=== PATIENT | female | born 1980 | race Caucasian/White ===

== ENCOUNTER 2022-03-04 16:47 | Emergency (ER) | payer MEDICAID, SELFPAY ==
[2022-03-04 17:29] VITALS: BP 175/133; PULSE 95; RESP 16; TEMP 36.8; O2SAT 99; BMI 29.2
--- NOTE | 2022-03-04 18:21 | ED_ITS ---
HPI - General Adult General: Chief complaint: Abdominal Pain Stated complaint: Abd pains, N/V Time Seen by Provider: 03/04/22 18:14 History of Present Illness: Patient is a 41-year-old female with a history of smoking no prior abdominal surgeries presenting to the emergency room with complaints of an periumbilical and LLQ abdominal pain since yesterday night. Patient tells me that she ate something around 7:00 since and has been having moderate pain intermittent colicky. Patient has any history of renal colic. No urinary complaints or history of kidney stones.. Patient denies any new vaginal discharge. Patient has any fever/chills, cough, runny nose sore throat, chest pain, shortness of breath or palpitation Onset: yesterday night Duration:ongoing Location:home Severity:moderate Associated symptoms: Deny chest pain, dyspnea, nausea, rash, palpitations or vomiting Review of Systems Const: Denies: fever(s) or chills Eyes: Denies: change in vision ENMT: Denies: mouth pain Card: Denies: chest pain or palpitations Resp: Denies: dyspnea or non-productive cough GI: Reports: abdominal pain (+LLQ abd pain); Denies: nausea, vomiting or diarrhea : Denies: dysuria Musc: Denies: extremity pain Skin/Breast: Denies: rash or new lesions Neuro: Denies: weakness in extremities Psych: Reports: other (Normal mood) Stanley/Lymph: Denies: easy bruising PFSH ED PFSH: Medical History No pertinent past medical history Social History Smoking and tobacco status: current every day smoker Alcohol intake: never Substance/Drug Use: never Physical Exam Const: COMMON NORMALS: alert HENMT: COMMON NORMALS: atraumatic HEAD & SCALP: atraumatic MOUTH: moist mucous membranes not abnormal Eye: COMMON NORMALS: EOMs intact bilaterally and conjunctivae normal CONJUNCTIVA: Yes conjunctivae normal Neck/C-Spine: COMMON NORMALS: full ROM and supple Resp: COMMON NORMALS: normal respiratory effort and clear to auscultation bilaterally AUSCULTATION: clear to auscultation bilaterally Cardio: COMMON NORMALS: regular rate RATE: regular rate GI: COMMON NORMALS: Soft to palpation PALPATION: Yes Soft to palpation OTHER: + Periumbilical focal and LLQ TTP. NO guarding rebound, guarding, rigidity. No CVA tenderness to percussion. Neg Tapia/Neg McBurney's point tenderness, no suprabupic tenderness to palpation. Back/Pelvis: OTHER: PELVIC: Exam supervised RENEE Hickey, mild white discharge in the vaginal vault, no friable cervix, no CMT, no adnexal tenderness Extremity: COMMON NORMALS: full ROM Neuro: SENSORIUM/ORIENTATION: Yes alert MOTOR EXAM: No Abnormal motor strength present and Other motor observations present (no focal motor deficits) Psych: COMMON NORMALS: speech normal SPEECH: Yes normal speech MOOD & AFFECT: Yes euthymic mood Course Vital Signs: Vital signs: Vital Signs Temperature 98.2 F 03/04/22 17:29 Pulse Rate 89 03/04/22 19:56 Respiratory Rate 18 03/04/22 19:56 Blood Pressure 171/117 03/04/22 19:56 Pulse Oximetry 99 03/04/22 19:56 Oxygen Delivery Me thod 03/04/22 19:56 MDM - General Adult Medical Decision Making Patient is a 41-year-old female with history of smoking presenting to the emergency room with complaints of periumbilical and LLQ abd pain yesterday night. On exam, patient is afebrile, with mild tenderness palpation in the periumbilical and LLQ. Patient is afebrile. No acute distress. On pelvic exam, patient was noted to have mild discharge in the vaginal vault without any friable cervix. No adnexal tenderness. Patient has white blood count of 18.7K. Hemoglobin of 15.6. Sodium 129. Rest of lab within normal limit. CT on pelvis showed mild mild hydronephrosis bilaterally. Patient is noted to have 4+ bacteria in the urine. Rest of UA negative for any acute findings. Transvaginal US showed no focal pathologies. I discussed care with Dr. Fall who recommended starting patient on antibiotics for coverage of bilateral hydro with bacteria in the urine. Patient received cefdinir in ER. Reassessment, patient reports pain is improved. Patient has not had any nausea or vomiting while observed in the emergency room. Do not suspect that this is infected stone but will cover her for UTI in the setting of hydronephrosis. No suspicion for other acute intra-abdominal pathology including SBO, biliary pathology, appendicitis, diverticulitis, or other emergent condition requiring surgery. Patient has vaginal swabs all unremarkable. I have given patient follow up with our vocational case manager to be seen by our outpatie nt by Dr. Fall for b/l hydronephrosis. Patient aware of a call from our vocational case manager to schedule for appointment(s) and verbalizes understanding of the importance of following up. Rx cefdinir for UTI Disposition: Discharge. Patient counseled regarding diagnostic impression, treatment plan. Patient given ED strict return precautions to return for continuation, worsening, or development of new symptoms. Instructed to f/u w/ Dr. Fall and PCP regarding symptoms today. Patient verbalized understanding. Lab Data : 03/04/22 18:32 03/04/22 18:32 Radiology Impressions Abdomen/Pelvis CT 03/04/22 19:17 IMPRESSION: 1. Mild right and trace left hydronephrosis. No visible calculus. 2. No other abnormality identified. Transvaginal US 03/04/22 20:56 IMPRESSION: No acute findings. Laboratory Results WBC 18.7 10^3/uL (4.0-10.0) H 03/04/22 18:32 RBC 5.12 10^6/uL (4.1-5.3) 03/04/22 18: Hgb 15.6 g/dL (11.5-15.3) H 03/04/22 18:32 Hct 48.6 % (37.0-47.0) H 03/04/22 18:32 MCV 94.9 fl (81-99) 03/04/22 18: MCH 30.5 pg (28.0-34.0) 03/04/22 18:32 MCHC 32.1 g/dL (30.0-36.0) 03/04/22 18: RDW 13.4 % (12.1-15.1) 03/04/22 18: Plt Count 353 10^3/cmm (130-400) 03/04/22 18:32 MPV 10.4 fL (7.4-10.4) 03/04/22 18:32 Neut % (Auto) 84.2 % 03/04/22 18: Lymph % (Auto) 10.9 % 03/04/22 18:32 Nobles % (Auto) 4.2 % 03/04/22 18:32 Eos % (Auto) 0.1 % 03/04/22 18:32 Baso % (Auto) 0.2 % 03/04/22 18:32 Neut # (Auto) 15.77 10^3/uL (1.8-7.7) H 03/04/22 18:32 Lymph # (Auto) 2.0 10^3/uL (0.8-4.8) 03/04/22 18:32 Nobles # (Auto) 0.8 10^3/uL (0.2-0.9) 03/04/22 18:32 Eos # (Auto) 0.0 10^3/uL (0.0-0.8) 03/04/22 18: Baso # (Auto) 0.0 10^3/uL (0.0-0.1) 03/04/22 18:32 Nucleated RBC % (auto) 0 % 03/04/22 18:32 Nucleated RBCs # 0.0 /100WBC 03/04/22 18:32 Sodium 129 mmol/L (136-145) L 03/04/22 18:32 Potassium 4.1 mmol/L (3.5-5.1) 03/04/22 18:32 Chloride 93 mmol/L (98-107) L 03/04/22 18:32 Carbon Dioxide 22 mmol/L (22-29) 03/04/22 18:32 Anion Gap 18.1 (5-19) 03/04/22 18:32 BUN 7 mg/dL (6-20) 03/04/22 18:32 Creatinine 0.4 mg/dL (0.5-0.9) L 03/04/22 18:32 GFR Calculation 175.0 mL/min (90-130) H 03/04/22 18:32 Glucose 91 mg/dL (65-115) 03/04/22 18:32 Calculated Osmolality 266 mOsm/kg (285-295) L 03/04/22 18:32 Calcium 9.4 mg/dL (8.5-10.5) 03/04/22 18:32 Total Bilirubin 0.5 mg/dL (0.15-1.2) 03/04/22 18:32 AST 20 U/L (0-32) 03/04/22 18:32 ALT 18 U/L (0-33) 03/04/22 18:32 Alkaline Phosphatase 151 IU/L (35-105) H 03/04/22 18:32 Total Protein 8.3 g/dL (6.6-8.7) 03/04/22 18:32 Albumin 4.4 g/dL (3.5-5.2) 03/04/22 18:32 Globulin 3.9 g/dL (1.3-4.6) 03/04/22 18:32 Lipase 12 U/L (13-60) L 03/04/22 18:32 Urine Color Yellow (Yellow) 03/04/22 18:32 Urine Appearance Sl hazy (CLEAR) 03/04/22 18:32 Urine pH 7 (5-7) 03/04/22 18:32 Ur Specific [place] 1.010 (1.005-1.030) 03/04/22 18:32 Urine Protein 1+ (Negative) H 03/04/22 18:32 Urine Glucose (UA) Norm (Normal) 03/04/22 18:32 Urine Ketones Negative (Negative) 03/04/22 18:32 Urine Blood Neg (Negative) 03/04/22 18:32 Urine Nitrate Negative (Negative) 03/04/22 18:32 Urine Bilirubin Neg (Negative) 03/04/22 18:32 Urine Urobilinogen Norm mg/dL (Negative) 03/04/22 18:32 Ur Leukocyte Esterase Negative (Negative) 03/04/22 18:32 Urine RBC 0-4 /hpf (0-2) H 03/04/22 18:32 Urine WBC 0-4 /hpf (0-5) H 03/04/22 18:32 Ur Squamous Epith Cells 0-4 /hpf (0-5) H 03/04/22 18:32 Amorphous Sediment Not Reportable 03/04/22 18:32 Urine Bacteria 4+ /hpf (NONE) H 03/04/22 18:32 Urine HCG, Qual Negative (Negative) 03/04/22 18:32 Imaging Data Other Imaging: Radiologist's impression: [facility] [address] [place] [address] Ultrasound Report Signed Patient: Robyn Asencio Unit #: [id number] : 1980 Age/Sex: 41 / F ADM Date: 03/04/22 Loc: ER Room/Bed: Attending Dr: Ordering Provider/Ordering MD: Jonathan Maza MD Date of Service: 03/04/22 Procedure(s): US transvaginal [id number] Accession Number(s): [id number] Report Number: [id number] PROCEDURE INFORMATION: Exam: US Pelvis, Transvaginal Exam date and time: 03/04/2022 9:20 PM Age: 41 years old Clinical indication: Pelvic pain; Patient HX: Llq pain x 2 days; Additional info: Llq abd pain TECHNIQUE: Imaging protocol: Real-time transvaginal pelvic ultrasound with image documentation. Transvaginal imaging was used for better evaluation of the endometrium, adnexa, and/or cervix. COMPARISON: CT abdomen pelvis w con* [id number] 03/04/2022 8:10 PM FINDINGS: Uterus: 8.1 x 4.1 x 4.9 cm. Endometrial thickness 9 mm.? The cervix is unremarkable. Right ovary/adnexa: 2.7 x 1.8 x 2.7 cm with small follicles and normal blood flow. Left ovary/adnexa: 3.0 x 2.3 x 3.0 cm with multiple small follicles and normal blood flow. Intraperitoneal space: No free fluid. US/US transvaginal [id number] IMPRESSION: No acute findings. ? Dictated By: Cayetano Cordova Signed By: Cayetano Cordova Signed Date/Time: 03/04/222147 DD/ [address] [address] [address] Scan Report Signed Patient: Robyn Asencio Unit #: [id number] : 1980 Age/Sex: 41 / F ADM Date: 03/04/22 Loc: ER Room/Bed: Attending Dr: Ordering Provider/Ordering MD: Jonathan Maza MD Date of Service: 03/04/22 Procedure(s): CT abdomen pelvis w con* [id number] Accession Number(s): [id number] Report Number: [id number] PROCEDURE INFORMATION: Exam: CT Abdomen And Pelvis With Contrast Exam date and time: 03/04/2022 8:10 PM Age: 41 years old Clinical indication: Abdominal pain; Additional info: Abd pain TECHNIQUE: Imaging protocol: Computed tomography of the abdomen and pelvis with contrast. Radiation optimization: All CT scans at this facility use at least one of these dose optimization techniques: automated exposure control; mA and/or kV adjustment per patient size (includes targeted exams where dose is matched to clinical indication); or iterative reconstruction. Contrast material: OMNIPAQUE 350; Contrast volume: 90 ml; Contrast route: INTRAVENOUS (IV);? COMPARISON: No relevant prior studies available. RADIATION DOSE METRICS: Total DLP (mGy-cm): 504.83 FINDINGS: Liver: Normal. No mass. Gallbladder and bile ducts: Normal. No calcified stones. No ductal dilation. Pancreas: Normal. No ductal dilation. Spleen: Normal. No splenomegaly. Adrenal glands: Normal. No mass. Kidneys and ureters:? No visible calculus. Mild right and trace left hydronephrosis. Stomach and bowel: Unremarkable. No obstruction. No mucosal thickening. Appendix: The appendix is visualized and is normal. Intraperitoneal space: Unremarkable. No free air. No significant fluid collection. 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 Mild arterial calcifications. No aneurysm. Lymph nodes: Unremarkable. No enlarged lymph nodes. Urinary bladder: Unremarkable as visualized. Reproductive: Tubal ligation clips. The uterus and ovaries are unremarkable. Bones/joints: Unremarkable. No acute fracture. Soft tissues: Unremarkable. CT/CT abdomen pelvis w con* [id number] IMPRESSION: 1. Mild right and trace left hydronephrosis.? No visible calculus.? 2. No other abnormality identified.? ? Dictated By: Cayetano Cordova Signed By: Cayetano Cordova Signed Date/Time: 03/04/222053 DD/ 09 Discharge Plan Discharge Patient Disposition: Home Clinical Impression: Abdominal pain, UTI (urinary tract infection) Prescriptions: New acetaminophen 500 mg tablet 500 mg PO Q6H PRN (Reason: pain) 5 Days Qty: 20 0RF Pepcid 20 mg tablet 20 mg PO BID PRN (Reason: abdominal pain) 10 Days Qty: 20 0RF Maalox Advanced 1,000-60 mg tablet,chewable 1 tab PO TID PRN (Reason: abdominal pain) 7 Days Qty: 21 0RF cefdinir 300 mg capsule 300 mg PO BID 7 Days Qty: 14 0RF Discharge Orders: Discharge ED (Routine); Ordered 03/04/22 Ordered By: Jonathan Maza Referrals: Zion Spann MD [Family Provider] - Discharge Diet: Advance as tolerated Discharge Activity: Increase activity as tolerated Patient Instructions: Dysuria (ED), Abdominal Pain (ED) Activity Restrictions/Additional Instructions: Please take your antibiotics as instructed. Watch out for signs of skin changes/redness, mouth redeness or swelling, nausea/vomiting, diarrhea, blood in the urine or any new or concering complaints. Please come back if you have any worsening abdominal pain, fever or chills, nausea or vomiting, diarrhea, blood in the stool, inability hold down liquid or solids, or any new concerning complaints. Our vocational case manager will have you follow-up with Dr. Fall in the next few days for enlarged kidneys. You would be expected to have a phone call with our vocational case manager who will put you on the schedule. You can expect a call from us in the next 2-3 days. If you don't hear from us, call us back in the emergency room at [phone]. Coding Level of Care Code ED Financial Planning Assistant for Chg Fwd Exam Comprehensive
[2022-03-04 18:44] LABS: Basophils % 0.2 %; Eosinophils % 0.1 %; Hematocrit 48.6 % (37.0-47.0); Hemoglobin 15.6 g/dL (11.5-15.3); Lymphocytes % 10.9 %; Mean Corpuscular HGB Conc 32.1 g/dL (30.0-36.0); Mean Corpuscular Hemoglobin 30.5 pg (28.0-34.0); Mean Corpuscular Volume 94.9 fl (81-99); Mean Platelet Volume 10.4 fL (7.4-10.4); Monocytes # 0.8 10^3/uL (0.2-0.9); Monocytes % 4.2 %; Neutrophils # 15.77 10^3/uL (1.8-7.7); Neutrophils % 84.2 %; Nucleated Red Blood Cells % 0 %; Platelet Count 353 10^3/cmm (130-400); Red Blood Count 5.12 10^6/uL (4.1-5.3); Red Cell Distribution Width 13.4 % (12.1-15.1); White Blood Count 18.7 10^3/uL (4.0-10.0)
--- NOTE | 2022-03-04 19:17 | CTR_ITS ---
PROCEDURE INFORMATION: Exam: CT Abdomen And Pelvis With Contrast Exam date and time: 03/04/2022 8:10 PM Age: 41 years old Clinical indication: Abdominal pain; Additional info: Abd pain TECHNIQUE: Imaging protocol: Computed tomography of the abdomen and pelvis with contrast. Radiation optimization: All CT scans at this facility use at least one of these dose optimization techniques: automated exposure control; mA and/or kV adjustment per patient size (includes targeted exams where dose is matched to clinical indication); or iterative reconstruction. Contrast material: OMNIPAQUE 350; Contrast volume: 90 ml; Contrast route: INTRAVENOUS (IV); COMPARISON: No relevant prior studies available. RADIATION DOSE METRICS: Total DLP (mGy-cm): 504.83 FINDINGS: Liver: Normal. No mass. Gallbladder and bile ducts: Normal. No calcified stones. No ductal dilation. Pancreas: Normal. No ductal dilation. Spleen: Normal. No splenomegaly. Adrenal glands: Normal. No mass. Kidneys and ureters: No visible calculus. Mild right and trace left hydronephrosis. Stomach and bowel: Unremarkable. No obstruction. No mucosal thickening. Appendix: The appendix is visualized and is normal. Intraperitoneal space: Unremarkable. No free air. No significant fluid collection. 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 Mild arterial calcifications. No aneurysm. Lymph nodes: Unremarkable. No enlarged lymph nodes. Urinary bladder: Unremarkable as visualized. Reproductive: Tubal ligation clips. The uterus and ovaries are unremarkable. Bones/joints: Unremarkable. No acute fracture. Soft tissues: Unremarkable. CT/CT abdomen pelvis w con* [id number] IMPRESSION: 1. Mild right and trace left hydronephrosis. No visible calculus. 2. No other abnormality identified.
[2022-03-04 19:24] LABS: Alanine Aminotransferase 18 U/L (0-33); Albumin Level 4.4 g/dL (3.5-5.2); Alkaline Phosphatase 151 IU/L (35-105); Blood Urea Nitrogen 7 mg/dL (6-20); Calcium 9.4 mg/dL (8.5-10.5); Carbon Dioxide 22 mmol/L (22-29); Chloride 93 mmol/L (98-107); Globulin 3.9 g/dL (1.3-4.6); Glucose 91 mg/dL (65-115); Lipase 12 U/L (13-60); Osmolality Calculated 266 mOsm/kg (285-295); Sodium 129 mmol/L (136-145); Total Bilirubin 0.5 mg/dL (0.15-1.2); Total Protein 8.3 g/dL (6.6-8.7)
[2022-03-04 19:26] LABS: Anion Gap 18.1 (5-19); Aspartate Amino Transferase 20 U/L (0-32); Potassium 4.1 mmol/L (3.5-5.1)
[2022-03-04] MEDS: famotidine 20 mg/2 mL INJ IVP (19:41)
[2022-03-04] MEDS: sodium chloride 0.9% 1,000 ML 999 ML IV (19:43)
[2022-03-04 19:56] VITALS: BP 171/117; PULSE 89; RESP 18; O2SAT 99
[2022-03-04] MEDS: iohexol 350 mg/mL 100 mL Btl IV (20:21)
[2022-03-04 20:48] LABS: Add Urine Microscopic? YES; Bilirubin Urine Neg (Negative); Blood Urine Neg (Negative); Glucose Urine UA Norm (Normal); Ketones Urine Negative (Negative); Leukocyte Esterase Urine Negative (Negative); Nitrate Urine Negative (Negative); Protein Urine 1+ (Negative); RBC Urine 0-4 /hpf (0-2); Urine Appearance SL Hazy (CLEAR); Urine Color Yellow (Yellow); Urobilinogen Urine Norm (Negative); WBC Urine 0-4 /hpf (0-5); pH Urine 7 (5-7)
[2022-03-04 20:49] LABS: Add Urine Culture? Yes; Bacteria Urine 4+ /hpf; Squamous Epithelial Cell Urine 0-4 /hpf (0-5)
--- NOTE | 2022-03-04 20:56 | USR_ITS ---
PROCEDURE INFORMATION: Exam: US Pelvis, Transvaginal Exam date and time: 03/04/2022 9:20 PM Age: 41 years old Clinical indication: Pelvic pain; Patient HX: Llq pain x 2 days; Additional info: Llq abd pain TECHNIQUE: Imaging protocol: Real-time transvaginal pelvic ultrasound with image documentation. Transvaginal imaging was used for better evaluation of the endometrium, adnexa, and/or cervix. COMPARISON: CT abdomen pelvis w con* [id number] 03/04/2022 8:10 PM FINDINGS: Uterus: 8.1 x 4.1 x 4.9 cm. Endometrial thickness 9 mm. The cervix is unremarkable. Right ovary/adnexa: 2.7 x 1.8 x 2.7 cm with small follicles and normal blood flow. Left ovary/adnexa: 3.0 x 2.3 x 3.0 cm with multiple small follicles and normal blood flow. Intraperitoneal space: No free fluid. US/US transvaginal [id number] IMPRESSION: No acute findings.
[2022-03-04] MEDS: cefdinir 300 MG CAPSULE PO (22:28)
[2022-03-04 22:54] VITALS: BP 163/109; PULSE 106; RESP 18; O2SAT 99
--- NOTE | 2022-03-06 15:55 | DCPLANNER ---
Addendum entered by Dayana Nolasco 04/12/22 11:50: Patient had a follow up appointment scheduled with urology - patient did attend appointment. Addendum entered by Dayana Nolasco 03/08/22 12:40: Patient has a follow up appointment scheduled for Friday, April 03, 2022 at 8:00 with Kathryn Monroy at urology. Clinic will call patient with appointment information. Original Note: digital communications manager had message to schedule a follow up appointment for patient with urology. digital communications manager sent patients information to the front office staff at urology. Patients information will be printed and reviewed. Clinic will call patient with appointment information.
== END 2022-03-04 22:46 | disposition home or self-care (01) ==
PROVIDERS: Emergency Provider Emergency Medicine; Family Provider Family Medicine
DX: N39.0 Urinary tract infection, site not specified (principal); R10.9 Unspecified abdominal pain; F17.210 Nicotine dependence, cigarettes, uncomplicated
CPT/HCPCS: 74177; 76830; 80053; 81001; 81025; 83690; 85025; 87077; 87081; 87086; 87186; 87205; 87210; 96374; 99285; J3490; J7030; Q9967

== ENCOUNTER 2022-04-03 07:59 | Outpatient (CLI) | payer MEDICAID, SELFPAY ==
--- NOTE | 2022-04-03 08:05 | XR_ITS ---
WS: [id number] KUB, AP view, 04/03/2022 Clinical Data: Hydronephrosis Comparison: None. Findings: No abnormal intraabdominal masses or calcifications are seen. There is no dilatated small bowel or ev idence of obstruction. There is a large amount of fecal material throughout the colon. There is a gentle dextroscoliosis wit h minimal osteoarthritis of the lumbar vertebral bodies. XR/XR KUB [id number] Impression: Large amount of fecal material throughout the colon.
== END 2022-04-03 08:00 | disposition home or self-care (01) ==
LOC: RAD 08:01
PROVIDERS: Visit Provider Nurse Practitioner Family
DX: N13.30 Unspecified hydronephrosis (principal)
CPT/HCPCS: 51798; 74018

== ENCOUNTER → 2022-04-16 11:52 | Outpatient (BNVA) | payer SELFPAY | PROVIDERS: Visit Provider Nurse Practitioner Family | DX: N13.30 Unspecified hydronephrosis (principal); R10.9 Unspecified abdominal pain | CPT/HCPCS: 81003 ==

== ENCOUNTER → 2022-06-04 15:23 | Outpatient (BNVA) | payer MEDICAID, SELFPAY | PROVIDERS: Visit Provider Surgery | DX: K59.00 Constipation, unspecified (principal); R10.9 Unspecified abdominal pain | CPT/HCPCS: 99203 ==

== ENCOUNTER 2022-06-13 11:21 | Outpatient (CLI) | payer MEDICAID, SELFPAY ==
--- NOTE | 2022-06-13 11:00 | US_ITS ---
WS: [id number] RENAL ULTRASOUND HISTORY: Hydronephrosis COMPARISON: CT abdomen 03/04/2022. TECHNIQUE: 2-D and color Doppler imaging of the kidney submitted. Right kidney: 11.0 cm x 5.5 cm x 5.0 cm. Normal echogenicity with no hydronephrosis or mass. Left kidney: 11.1 cm x 6.1 cm x 4.0 cm. Normal echogenicity with no hydronephrosis or mass. Aorta: Normal. Urinary Bladder: Normal distention. Incidental note is made of a hemorrhagic RIGHT ovarian cyst. No increased vascularity. Cyst measures 4.7 x 4.4 x 4.7 cm. US/US renal BI* [id number] IMPRESSION: Normal renal ultrasound.
== END 2022-06-13 11:22 | disposition home or self-care (01) ==
PROVIDERS: Visit Provider Urology
DX: N13.30 Unspecified hydronephrosis (principal)
CPT/HCPCS: 76770

== ENCOUNTER → 2022-06-14 09:37 | Outpatient (BNVA) | payer MEDICAID, SELFPAY | PROVIDERS: Visit Provider Urology | DX: N13.30 Unspecified hydronephrosis (principal) | CPT/HCPCS: 81003; 87077; 87086; 87186 ==

== ENCOUNTER → 2022-10-29 13:10 | Outpatient (BNVA) | payer MEDICAID, SELFPAY | PROVIDERS: Visit Provider Obstetrics & Gynecology | DX: Z01.818 Encounter for other preprocedural examination (principal) | CPT/HCPCS: 81025; 88305; 88342 ==

== ENCOUNTER → 2022-12-12 12:41 | Outpatient (BNVA) | payer MEDICAID, SELFPAY | PROVIDERS: Visit Provider Obstetrics & Gynecology | DX: R10.2 Pelvic and perineal pain (principal) | CPT/HCPCS: 76830 ==

== ENCOUNTER 2023-01-15 18:01 | Observation (INO) | payer MEDICAID, SELFPAY ==
--- NOTE | 2023-01-13 08:37 | P.ANESASSM_ITS ---
Pre-Anesthetic Assessment Height/Weight: Height 1.52 m Weight 63.503 kg Operation Date: 01/15/23 10:30 Proposed Procedures p Total Vaginal Hysterectomy(Not Applicable) - Reji Dukes MD s [Total vaginal hysterectomy, bilateral salpingo-oophrectomy 84338], R10.2(Bilateral) - Reji Dukes MD Familial anesthetic complications: none Was Beta Taqueria taken within 24 hours: N/A Was Clonidine taken within 24 hours: N/A Social Tobacco and No alcohol Exam alert, oriented x 3 and regular rate & rhythm Airway Submandibular: within normal limits Cervical ROM: within normal limits Mallampati: Class II Dentition: chipped Comments: Comments: Very poor dentition, multiple missing and caries Pulmonary Chronic Obstructive Pulmonary Disease Anesthetic Plan ASA status: 3 Anesthesia: General Medications/Allergies Home Medications Medication Instructions Recorded Confirmed Last Taken Type No Known Home Medications 10/29/22 01/13/23 Unknown History Allergies Allergy/AdvReac Type Severity Reaction Status Date / Time No Known Allergies Allergy Verified 01/13/23 08:08 [facility] Anesthesia Medical History Hydronephrosis Possible right mild hydronephrosis on CT scan in 2021. CT scan was done for LEFT abdominal pain of unclear etiology Follow-up for hydronephrosis with ultrasound confirmed NO HYDRONEPHROSIS. No further work-up recommended. No pertinent past medical history Surgical History Hx of tubal ligation Family History Mother Healthy adult Father Healthy adult Social History Smoking and tobacco status: current every day smoker Alcohol intake: current Alcohol intake frequency: 0-2 Drinks per Day Substance/Drug Use: never Adopted: No Lives independently: Yes Marital status: Single Current occupational status: employed Female Reproductive History Date of last menstrual period: 12/12/22 Data Anesthesia Cardiac Studies: No Data to Display
[2023-01-15] VITALS (18 sets, daily range): BP systolic 117–143; BP diastolic 64–109; PULSE 71–104; RESP 15–18; TEMP 36.4–36.9; O2SAT 93–99
[2023-01-15] MEDS: sodium chloride 0.9% 1,000 ML 30 ML IV (12:47)
[2023-01-15] MEDS: scopolamine 1.5 Patch 1 PATCH TRANSDERMA (12:49)
--- NOTE | 2023-01-15 13:09 | W.PM.OPSUD ---
Surgery/Procedure H&P Update DATE OF PROCEDURE: January 15, 2023 DATE H&P PERFORMED: 01/13/23 H&P UPDATE INFORMATION: I have reviewed H&P completed within last 30 days, I have examined patient prior to procedure and No changes to prior documentation PREOP DIAGNOSIS: chronic pelvic pain PLANNED PROCEDURE: Operation Date: 01/15/23 14:05 Proposed Procedures p Total Vaginal Hysterectomy(Not Applicable) - Reji Dukes MD s [Total vaginal hysterectomy, bilateral salpingo-oophrectomy 84350], R10.2(Bilateral) - Reji Dukes MD
[2023-01-15 13:26] LABS: Basophils % 0.4 %; Eosinophils # 0.2 10^3/uL (0.0-0.8); Eosinophils % 2.4 %; Hematocrit 41.1 % (37.0-47.0); Hemoglobin 13.8 g/dL (11.5-15.3); Lymphocytes # 2.5 10^3/uL (0.8-4.8); Lymphocytes % 37.4 %; Mean Corpuscular HGB Conc 33.6 g/dL (30.0-36.0); Mean Corpuscular Hemoglobin 30.6 pg (28.0-34.0); Mean Corpuscular Volume 91.1 fl (81-99); Monocytes # 0.5 10^3/uL (0.2-0.9); Neutrophils # 3.46 10^3/uL (1.8-7.7); Neutrophils % 51.5 %; Nucleated Red Blood Cells % 0 %; Platelet Count 399 10^3/cmm (130-400); Red Blood Count 4.51 10^6/uL (4.1-5.3); Red Cell Distribution Width 13.7 % (12.1-15.1); White Blood Count 6.7 10^3/uL (4.0-10.0)
[2023-01-15 13:31] LABS: Add Urine Microscopic? YES; Bilirubin Urine Neg (Negative); Blood Urine Neg (Negative); Glucose Urine UA Norm (Normal); Ketones Urine Negative (Negative); Leukocyte Esterase Urine Negative (Negative); Nitrate Urine Negative (Negative); Protein Urine Neg (Negative); Specific Gravity, Urine 1.015 (1.005-1.030); Urine Appearance SL Hazy (CLEAR); Urine Color Yellow (Yellow); Urobilinogen Urine Norm (Negative); pH Urine 6.5 (5-7)
[2023-01-15 13:33] LABS: OR HCG Qualitative Urine Negative (Negative)
[2023-01-15 13:44] LABS: Chloride 104 mmol/L (98-107); Sodium 137 mmol/L (136-145)
--- NOTE | 2023-01-15 13:53 | P.ANESUD_ITS ---
Pre-Anesthetic Update Pre-Anesthetic Assessment: Date of Surgery/Procedure: 01/15/23 Preop Surekha gnosis: chronic pelvic pain Proposed Procedure: Operation Date: 01/15/23 14:05 Proposed Procedures p Total Vaginal Hysterectomy(Not Applicable) - Reji Dukes MD s [Total vaginal hysterectomy, bilateral salpingo-oophrectomy 58934], R10.2(Bilateral) - Reji Dukes MD Any changes to Pre-Anesthetic Assessment?: No Last Intake: Intake Last Liquid Date 01/14/23 Last Liquid Time 23:00 Last Solid Date 01/14/23 Last Solid Time 18:00 Labs Last 48hrs: Short CBC 01/15/23 Range/Units 12:57 WBC 6.7 (4.0-10.0) 10^3/ uL Hgb 13.8 (11.5-15.3) g/dL Hct 41.1 (37.0-47.0) % MCV 91.1 (81-99) fl Plt Count 399 (130-400) 10^3/c mm Neut % (Auto) 51.5 % Neut # (Auto) 3.46 (1.8-7.7) 10^3/u L BMP 01/15/23 12:57 Sodium 137 Potassium 4.3 Chloride 104 Liver Function 01/15/23 Range/Units 12:57 Albumin 3.9 (3.5-5.2) g/dL Urine 01/15/23 Range/Units 12:27 Urine Color Yellow (Yellow) Urine Appearance Sl hazy A (CLEAR) Urine pH 6.5 (5-7) Ur Specific Gravit y 1.015 (1.005-1.030) Urine Protein Neg (Negative) Urine Glucose (UA) Norm (Normal) Urine Ketones Negative (Negative) Urine Nitrate Negative (Negative) Urine Bilirubin Neg (Negative) Ur Leukocyte Mame ase Negative (Negative) Blood Bank 01/15/23 12:57 Blood Type O Positive Rho(D) Type Positive Vitals: Temperature 98.4 F 01/15/23 12:30 Temperature Source Temporal Artery S can 01/15/23 12:30 Pulse Rate 104 H 01/15/23 12:30 Respiratory Rate 16 01/15/23 12:30 Blood Pressure 143/109 01/15/23 12:30 Blood Pressure Lauren n 120 01/15/23 12:30 Pulse Oximetry 97 01/15/23 12:30 Oxygen Delivery Me thod Room Air 01/15/23 12:30 Exam: Pre-Anes Outpt Exam: alert, oriented x 3, clear to auscultation bilaterally and regular rate & rhythm Cardiac Studies: No Data to Display
[2023-01-15 14:00] LABS: Trichomonas Urine 1+ /hpf
[2023-01-15 14:02] LABS: Add Urine Culture? No; Bacteria Urine TRACE /hpf; RBC Urine 0-4 /hpf (0-2)
[2023-01-15 14:07] LABS: Alanine Aminotransferase 23 U/L (0-33); Alkaline Phosphatase 105 U/L (35-105); Anion Gap 16.5 (5-19); Aspartate Amino Transferase 17 U/L (0-32); Blood Urea Nitrogen 10 mg/dL (6-20); Calcium 9.1 mg/dL (8.5-10.5); Carbon Dioxide 21 mmol/L (22-29); Globulin 3.5 g/dL (1.3-4.6); Glomerular Filtration Rate 91.3 mL/min (90-130); Glucose 76 mg/dL (65-115); Osmolality Calculated 282 mOsm/kg (285-295); Potassium 4.5 mmol/L (3.5-5.1); Total Bilirubin 0.6 mg/dL (0.15-1.2); Total Protein 7.5 g/dL (6.6-8.7)
[2023-01-15] MEDS: ceFOXitin 2,000 MG in sodium chloride 0.9% (plus) 50 ML 100 MG IV (16:32)
[2023-01-15] MEDS: metroNIDAZOLE IV 500 MG/100 ML PREMIX 100 MG IV (16:52)
--- NOTE | 2023-01-15 18:10 | P.OP_ITS ---
Operative Report Date of procedure: January 15, 2023 Pre-op diagnosis: Preop Diagnosis chronic pelvic pain Post-op diagnosis: Same as above. Fallopian tubes adhesions Post-op findings: adhesions to fallopian tubes Procedure done: Vaginal hysterectomy with bilateral salpingo for right Specimens removed/disposition: Uterus. Left and right fallopian tubes and ovaries Surgeon: Reji uDkes MD Estimated blood loss (mL): 20 IV fluids (mL): 500 Urine output (mL): 200 Complications: bladder vesical bleede and small laceration. Suture to bladder to stop bleed and corrrect small lac. Procedure: After informed consent and risks, benefits, indications and alternatives reviewed with the patient was taken to the operating room. The patient was plac ed in dorsal lithotomy position prepped, and draped in the usual sterile fashion. The pre-procedure timeout verifying the correct patient, procedure, site and side, could not requirements was performed and acknowledge by the OR team. A Al catheter was placed. A Bookwalter vaginal retractor was placed into the vagina in usual manner visualize the cervix. Cervix was grasped with a single tooth tenaculum and circumferentially infiltrated with 2% lidocaine with epinephrine. Then cervix was circumferentially incised with bovie and the bladder was dissected off the pubovesical cervical fascia anteriorly with a sponge stick and Metzenbaum scissors. The anterior peritoneal reflection was identified and the anterior cul-de-sac was entered sharply with Metzenbaum scissors. While repositioning the anterior bookwakter retractor bladde, significant beeder noted and on further inspection mucosa of bladders was noted bulging. Suture placed on the bladde to correct the bleeding and to reinforce defect over the bladder in layers to insure a watertight repair. The same procedure was performed posteriorly and a posterior colpotomy was made through the posterior cul-de-sac space without difficulty and the posterior blade of the Bookwalter vaginal retractor was advanced posteriorly into the cul-de-sac. At this time, the left and right uterosacral ligaments were isolated and ligated with 0 Vicryl. The Enseal device was placed over the uterosacral ligaments on either side and was then used in a serial fashion up through the cardinal ligaments bilaterally cross-clamped, cut, and sealed with the Enseal device. Finally, the uterine arteries were cross-clamped, cut, sealed and ligated with the Enseal device. Hemostasis was assured. The broad ligaments were then serially clamped, sealed and cut with the Enseal device on both sides. Excellent hemostasis was visualized. Both cornua were clamped, sealed and cut with the Enseal device. Then the pedicles were then suture ligated with excellent hemostasis. The uterus was excised and submitted for pathologic evaluation. No other abnormalities were noted in the pelvic cavity. Then the right side Infundibular ligament was identified. The ureter was confirmed along the pelvic side wall and peristalsis was noted. The Enseal device was then used to clamp, sealed and transcepted at middistance, again being sure to be clear of the ureter and the fallopian tube and ovary were removed. The same process was then repeated on the left side. Good hemostasis was assure on both sides. The peritoneum was then closed in a pursestring fashion with 0 Vicryl suture. The vaginal cuff angles were closed with [id number] #0 Vicryl suture on both sides and transfixed with the ipsilateral cardinal and uterosacral ligaments. The remainder of the vaginal cuff was closed with #0 Vicryl in a running locked fashion. At this time, instruments were removed from the vagina at hemostasis assured. Then the Al catheter was removed and cystoscope was inserted. The bladder was filled with sterile water. Complete evaluation of the bladder mucosa was performed noting no lacerations, dimpling, tears, bleeding of the mucosa or muscular layers. Both ureteral orifices were identified. Prompt excretion of urine from both ureteral orifices was noted. Cystoscope was withdrawn. Al catheter was then placed yielding clear shante urine. The patient was taken out of dorsal lithotomy position and awakened from the general anesthesia. The patient tolerated the procedure well and was taken to the PACU recovery room in a stable condition. Sponge, lap, needle and instruments counts were correct x3.
[2023-01-15] MEDS: fentaNYL 50 mcg/mL INJ 2mL 100 MCG IVP (18:28)
[2023-01-15] MEDS: HYDROmorphone 1 mg/mL INJ 1 mL 0.5 MG IVP (18:38)
[2023-01-15] MEDS: dextrose 5%-lactated ringers 1,000 ML 125 ML IV (20:00)
[2023-01-15] MEDS: HYDROcodone-acetaminophen 5-325 mg Tablet PO (22:21)
[2023-01-16 00:23] VITALS: BP 132/88; PULSE 97; RESP 17; TEMP 36.7; O2SAT 96
[2023-01-16 02:30] VITALS: BP 113/71; PULSE 93; RESP 17; TEMP 37.1; O2SAT 94
[2023-01-16] MEDS: HYDROcodone-acetaminophen 5-325 mg Tablet PO (03:00)
[2023-01-16 06:09] LABS: Hemoglobin 12.8 g/dL (11.5-15.3); Mean Corpuscular HGB Conc 31.2 g/dL (30.0-36.0); Mean Corpuscular Hemoglobin 29.8 pg (28.0-34.0); Mean Corpuscular Volume 95.6 fl (81-99); Mean Platelet Volume 9.2 fL (7.4-10.4); Platelet Count 348 10^3/cmm (130-400); Red Blood Count 4.29 10^6/uL (4.1-5.3); Red Cell Distribution Width 13.4 % (12.1-15.1); White Blood Count 12.6 10^3/uL (4.0-10.0)
[2023-01-16 07:29] VITALS: BP 129/83; PULSE 98; RESP 16; TEMP 36.7; O2SAT 99
[2023-01-16] MEDS: docusate sodium 100 mg Capsule PO (08:39)
--- NOTE | 2023-01-16 09:27 | P.DS_ITS ---
Discharge Providers FISH HATCHERY LABORER Date of Admission: 01/15/23 18:01 Date of Discharge: 01/16/23 Attending Provider at Admission: Reji Dukes MD Attending Provider at Discharge: Reji Dukes MD Primary FISH HATCHERY LABORER: Reji Dukes MD Diagnoses at Discharge Discharge Diagnosis (1) Status post hysterectomy: Status: Acute Reason for Visit Reason for Visit: R10.2 Hospital Course Hospital Course Ms. Asencio is a 42 year old with a history of chronic pelvic pain treated with different modalities without resolving. She was admitted for planned total vaginal hysterectomy and bilateral salpingo-oophorectomy per patient request. Procedure was performed, complicated by small abrasion without perforation of the bladder causing bleeding. The bladder which was repaired in layers. Patient was informed of the complication, it was advised that a Al catheter will need to be in place for approximately 10 days and that she will need to return to the clinic next Friday for Al catheter removal. Overnight observation was uneventful. Tolerating diet well. Ambulating without difficulty. She was counseled regarding pelvic rest for 6 weeks (no sex, no tampons, no vaginal douches). Return to the emergency room if any fever, increased bleeding or pain. Physical Exam Narrative: GA: Alert and oriented ?3. HEENT: WNL. Heart: Regular rate and rhythm. Lungs: Clear to auscultation bilaterally. Abdomen: Bowel sounds present, nontender, minimal tenderness, incision clean and dry, no redness, pain or edema. SIGN BUILDER SUPERVISOR: No bleeding. Extremities: No edema, no cyanosis, no calves pain. Urinary Catheter Management: Al: Cath Placed During This Visit: yes Urinary Catheter Date of Insertion: 01/15/23 Urinary Catheter Time of Insertion: 16:59 History History History 3 Term 3 0 Miscarriages/Ectopic 0 Living Children 3 Discharge Data Studies Completed and Pending Pending at discharge Category Date Time Status Pathology: Surgical [PTH] Routine Pth 01/15/23 18:35 Received Laboratory Results WBC 12.6 10^3/uL (4.0-10.0) H 01/16/23 05:50 RBC 4.29 10^6/uL (4.1-5.3) 01/16/23 05:50 Hgb 12.8 g/dL (11.5-15.3) 01/16/23 05:50 Hct 41.0 % (37.0-47.0) 01/16/23 05:50 MCV 95.6 fl (81-99) 01/16/23 05:50 MCH 29.8 pg (28.0-34.0) 01/16/23 05:50 MCHC 31.2 g/dL (30.0-36.0) D 01/16/23 05:50 RDW 13.4 % (12.1-15.1) 01/16/23 05:50 Plt Count 348 10^3/cmm (130-400) 01/16/23 05:50 MPV 9.2 fL (7.4-10.4) 01/16/23 05:50 Neut % (Auto) 51.5 % 01/15/23 12:57 Lymph % (Auto) 37.4 % 01/15/23 12:57 [place] % (Auto) 8.0 % 01/15/23 12:57 Eos % (Auto) 2.4 % 01/15/23 12:57 Baso % (Auto) 0.4 % 01/15/23 12:57 Neut # (Auto) 3.46 10^3/uL (1.8-7.7) 01/15/23 12:57 Lymph # (Auto) 2.5 10^3/uL (0.8-4.8) 01/15/23 12:57 [place] # (Auto) 0.5 10^3/uL (0.2-0.9) 01/15/23 12:57 Eos # (Auto) 0.2 10^3/uL (0.0-0.8) 01/15/23 12:57 Baso # (Auto) 0.0 10^3/uL (0.0-0.1) 01/15/23 12:57 Nucleated RBC % (auto) 0 % 01/15/23 12:57 Nucleated RBCs # 0.0 /100WBC 01/15/23 12:57 Sodium 137 mmol/L (136-145) 01/15/23 12:57 Potassium 4.5 mmol/L (3.5-5.1) 01/15/23 12:57 Chloride 104 mmol/L (98-107) 01/15/23 12:57 Carbon Dioxide 21 mmol/L (22-29) L 01/15/23 12:57 Anion Gap 16.5 (5-19) 01/15/23 12:57 BUN 10 mg/dL (6-20) 01/15/23 12:57 Creatinine 0.7 mg/dL (0.5-0.9) 01/15/23 12:57 GFR Calculation 91.3 mL/min (90-130) 01/15/23 12:57 Glucose 76 mg/dL (65-115) 01/15/23 12:57 Calculated Osmolality 282 mOsm/kg (285-295) L 01/15/23 12:57 Calcium 9.1 mg/dL (8.5-10.5) 01/15/23 12:57 Total Bilirubin 0.6 mg/dL (0.15-1.2) 01/15/23 12:57 AST 17 U/L (0-32) 01/15/23 12:57 ALT 23 U/L (0-33) 01/15/23 12:57 Alkaline Phosphatase 105 U/L (35-105) 01/15/23 12:57 Total Protein 7.5 g/dL (6.6-8.7) 01/15/23 12:57 Albumin 4.0 g/dL (3.5-5.2) 01/15/23 12:57 Globulin 3.5 g/dL (1.3-4.6) 01/15/23 12:57 Urine Color Yellow (Yellow) 01/15/23 12:27 Urine Appearance Sl hazy (CLEAR) A 01/15/23 12:27 Urine pH 6.5 (5-7) 01/15/23 12:27 Ur Specific [place] 1.015 (1.005-1.030) 01/15/23 12:27 Urine Protein Neg (Negative) 01/15/23 12:27 Urine Glucose (UA) Norm (Normal) 01/15/23 12:27 Urine Ketones Negative (Negative) 01/15/23 12:27 Urine Blood Neg (Negative) 01/15/23 12:27 Urine Nitrate Negative (Negative) 01/15/23 12:27 Urine Bilirubin Neg (Negative) 01/15/23 12:27 Urine Urobilinogen Norm mg/dL (Negative) 01/15/23 12:27 Ur Leukocyte Esterase Negative (Negative) 01/15/23 12:27 Urine RBC 0-4 /hpf (0-2) H 01/15/23 12:27 Urine WBC 5-10 /hpf (0-5) H 01/15/23 12:27 Ur Squamous Epith Cells 10-15 /hpf (0-5) H 01/15/23 12:27 Amorphous Sediment Not Reportable 01/15/23 12:27 Urine Bacteria Trace /hpf (NONE) 01/15/23 12:27 Urine Trichomonas 1+ /hpf H 01/15/23 12:27 Urine HCG, Qual Negative (Negative) 01/15/23 12:27 Blood Type O Positive 01/15/23 12:57 Rho(D) Type Positive 01/15/23 12:57 Antibody Screen Negative 01/15/23 12:57 Vitals Last Vital Signs Temp 98.0 F 01/16/23 07:29 Pulse 98 01/16/23 07:29 Resp 16 01/16/23 07:29 BP 129/83 01/16/23 07:29 Pulse Ox 99 01/16/23 07:29 O2 Del Method Room Air 01/16/23 07:29 O2 Flow Rate 6 01/15/23 18:15 Discharge Plan Discharge Patient Disposition: Home Condition: Stable Prescriptions: New hydrocodone-acetaminophen 5-325 mg tablet 1 tab PO Q4H PRN (Reason: pain) Qty: 15 0RF acetaminophen 325 mg capsule 325 mg PO Q4H PRN (Reason: fever or pain) Qty: 60 0RF ibuprofen 800 mg tablet 800 mg PO TID PRN (Reason: pain) Qty: 60 0RF nitrofurantoin macrocrystal 100 mg capsule 100 mg PO BID 7 Days Qty: 14 0RF Rx Instructions: must administer with a meal/food No Action No Known Home Medications Discharge Orders: Discharge Order (Routine); Ordered 01/16/23 Ordered By: Reji Dukes Referrals: Reji Dukes MD [Physician] - 1 week Discharge Diet: Usual diet Discharge Activity: Limit activity as instructed Patient Instructions: Hydrocodone/Acetaminophen (By mouth), Ibuprofen (By mouth), Al Catheter Care, Urinary Leg Bag (GEN), Vaginal Hysterectomy (GEN), Opioid Safety Activity Restrictions/Additional Instructions: 1. Please call [facility] on next working day to make your post-operative appointment in 2 weeks. 2. Please stay home until you come back to the clinic on first post- hospatilization check up. 3. Please follow instructions on your medications CAREFULLY. 4. If you have abdominal incision, do not cover it unless dressing is necessary because of drainage. OK to shower, but avoid bath. Leave steri-strips until they fall off. If they are still on one week after surgery, you may remove them. 5. If you had vaginal surgery or vaginal repair, Dr. Dukes may instruct you to take SITZ bath. 6. Yellow, blood tinged odorous vaginal discharge is usually normal after hysterectomy or vaginal surgeries. 7. No SEXUAL INTERCOURSE, tampons, or douches until you are completely released from the post-operative care. 8. Avoid constipation by eating right and maybe using some Metamucil or Milk of Magnesia. 9. All prescription refills are given during the working hours. Please do no wait till it runs out. Call the clinic at [phone] before your medication runs out. The clinic will get in touch with your doctor to prescribe medicatio ns if necessary. 10. Please remain within 40 mile radius from our hospital because emergencies do happen now and then during the post-operative period. 11. If you have stairs at home, take one step at a time slowly and minimize the number of trips. It helps to stay in one floor for the next few days. No lifting except what you can lift by one hand until you are released from the post-operative care. 12. Driving is discouraged until you are well healed. It may be 3-4 weeks before you feel strong enough to drive. You should be able to turn and look through the rear window without pain and you should be able to push the brake pedal very hard without pain before you drive. No fast rules, but SAFETY should be your primary concern. DO NOT drive if you are on sedating medications such as narcotics. 13. Call the clinic (during working hours) to make urgent appointment or go to the Emergency room, if any of the following occurs: i. Vaginal bleeding becomes heavy, more than a period. ii. Incision becomes red and sore, or drains pus. iii. Your TEMPERATURE is over 100.4F or you have chill. iv. IV site becomes red and swollen (a little ``knot?? is usually OK) v. Persistent nausea and vomiting vi. Persistent constipation or diarrhea vii. Rash or allergic reaction to medications. Discharge Attestations FISH HATCHERY LABORER Time Spent in Discharge Care*: greater than 30 min Coding Level of Care Code Acute Code for Chg Fwd Diagnoses Status post hysterectomy Z90.710
--- NOTE | 2023-01-16 10:58 | PC.CHAP ---
Pastoral Care Encounter/Spiritual Assessment Type of Contact [x] Declined air conditioning equipment mechanic visit [] Patient/Family/Request visit [] Outpatient visit [] Follow-up visit [] Physician referral [] Code/Alert [] Routine visit [] Staff referral [] Actively dying [] Patient sleeping [] Family support [] [] Out of room [] Palliative care [] [] Receiving care in room [] Pre-surgical visit [] Trauma [] Long length of stay [] ICU visit [] Other: Relational/Emotional Strength [] Patient feels connected with others/family/visitors/staff [] Distress [] Loneliness/isolation [] Abandonment Spirituality of Patient [] Person of [place] [] Attends Tenriism of their [place] [] Believes in Prayer [] Reads Bible or Zoroastrian materials [] There are Spiritual issues to be addressed Sterilizer Machine Operator Interventions [] Prayer [] Active listening [] Non-anxious presence [] Spiritual/emotional support [] Crisis/trauma care [] Spiritual counseling [] Bereavement support [] Provided bereavement packet [] Provided Bible/devotional materials [] Provided toy/stuffed animal, coloring book to patient or family member [] Provided Communion [] Anointing/Etoile [] Salvation [] Completed spiritual assessment [] Other: Impact on Illness or Injury [] Angry [] Fearful [] Anxious [] Often cries [] Exhaustion [] Unable to work [] Unable to attend restorationism [] Unable to walk/stand [] Unable to read [] Unable to drive [] Unable to eat/drink [] Unable to sleep [] Unable to be with family [] Patient intubated [] Other: Summary heart Declined air conditioning equipment mechanic visit Time spent with patient 5 mins
[2023-01-16 11:03] VITALS: BP 129/83; PULSE 98; RESP 16; TEMP 36.7; O2SAT 99
--- NOTE | 2023-01-16 11:05 | PC.NURSE ---
patient verbalized understanding of discharge instructions, home medications and follow up appointments.
== END 2023-01-16 10:50 | disposition home or self-care (01) ==
LOC: MEDSURG 18:01
PROVIDERS: Admitting Provider Obstetrics & Gynecology; Visit Provider Obstetrics & Gynecology
PROC: (CPT 58262; principal; 2023-01-15 13:55)
PROC: (CPT 58720; 2023-01-15 13:55)
PROC: 0TJB8ZZ Inspection of Bladder, Via Natural or Artificial Opening Endoscopic (ICD-10-PCS; CPT 52000; 2023-01-15 13:55)
DX: N71.1 Chronic inflammatory disease of uterus (principal); N80.03 Adenomyosis of the uterus; N83.201 Unspecified ovarian cyst, right side; N83.8 Other noninflammatory disorders of ovary, fallopian tube and broad ligament; N83.02 Follicular cyst of left ovary; J44.9 Chronic obstructive pulmonary disease, unspecified; F17.200 Nicotine dependence, unspecified, uncomplicated; N99.71 Accidental puncture and laceration of a genitourinary system organ or structure during a genitourinary system procedure; Y65.8 Other specified misadventures during surgical and medical care
CPT/HCPCS: 58262; 36415; 80053; 81001; 84703; 85025; 85027; 86850; 86900; 88307; G0378; J0694; J1100; J1170; J1885; J2370; J2405; J2704; J3010; J3490; J7030; J7121; Q9968

== ENCOUNTER 2025-02-21 11:59 | Emergency (ER) | payer MEDICAID, SELFPAY ==
--- OUTSIDE RECORDS SUMMARY | 2025-02-21 12:04 | XMS_ITS | Data Portability ---
Author Organization [facility], [place], [facility] Address [address] [place] [id number] Care Team Providers Care Shot Core Drill Operator Helper Name Role Phone CONY OLVERA Primary Care Provider Unavailabl e Assessment Encounter Date Assessment Date Assessment LastModified by Organization Details LastModified Time 10/24/2023 10/24/2023 Xray wrist 3 view- no fx, no fb, - independently viewed by nm [email or web address] Not available 10/25/2023 08:47:47 Plan of Treatment Reminders Order Date Submit Date Provider Last Modified By Organization Details Last Modified Time Details Appointments None recorded . Lab None recorded . Referral None recorded . Procedures None recorded . Surgeries None recorded . Imaging XR, wrist, 3 or more view 024 10/24/19 24 [email or web address] 2 [facility] ([facility]), [address] [place] [address], [id number], 4 10:47:30 Medication Orders Mobic 15 mg tablet 024 04/05/20 [id number], [address], [place], [place], [id number], 4 11:21:12 Patient TargetsNo targets recorded. Patient InstructionsNo instructions recorded. Reason for Referral None Reported. Problems Name Problem SNOMED Code Status Onset Date Resolution Date Notes Provider Name and Address Organization Details Recorded Time Essential hypertension 03969133 Active 2022 ARNULFO darling [facility], [place] 3 08:32:20 Tenosynovitis of thumb 922555142 Active 2023 Cony Olvera MD [address] [place], [address] [facility], [place] 4 10:44:44 Problem Notes None recorded. Procedures Surgical History Date Name Laterality Status Provider Name and Address Organization Details Recorded Time 4 Hysterectomy completed BIN BEATTY [facility], [place] 04/05/2024 10:32:35 Imaging Results None recorded. Procedure Notes None recorded. Medical Equipment None Reported. Allergies No known drug allergies Medications Name Sig Start Date Stop Date Status Note LastModified by Organization Details LastModified Time acetamino phen 325 mg tablet TAKE 1 TABLET BY MOUTH EVERY 4 HOURS NEEDED FOR FEVER OR PAIN 04/05 completed Not Available Not Available Not Available hydrocodo ne 5 mg-acetam inophen 325 mg tablet TAKE 1 TABLET BY MOUTH EVERY 4 HOURS NEEDED FOR PAIN 04/05 completed Not Available Not Available Not Available lisinopri l 20 mg tablet Take 1 tablet every day by oral route. 04/05 completed pt stopped taking. Not Available Not Available Not Available Mobic 15 mg tablet Take 1 tablet every day by oral route. 2023 active Not Available Not Available Not Avai lable nitrofura ntoin macrocrys santiago 100 mg capsule TAKE 1 CAPSULE BY MOUTH TWICE DAILY WITH FOOD FOR 7 DAYS 04/05 completed Not Available Not Available Not Available estradiol 0.5 mg tablet TAKE 3 TABLETS BY MOUTH DAILY FOR SURGICAL MENOPAUS E. active Not Available Not Available No t Available lisinopri l daily 04/05 completed Recorded 07/17/20 22 5:02PM by Cony Olvera MD, Office Visit; Refill Quantity : 30; Tablet; Not Available Not Available Not Available Vitals Date Recorded Body height Body mass index (BMI) Body weight Oxygen saturation Oxygen saturation in Arterial blood by Pulse oximetry Heart rate Respiratory rate Body temperature Systolic And Diastolic Provider Name and Address Organization Details Last Updated DateTime 4 152.4 cm 29.4 kg/m2 04933.0 1 g 97 % 97 % 111 /min 14 /min 96.9 [degF] 138/82 mm[Hg] Jessica Cadena [facility] 4 14:39:03 Date Recorded Body height Body mass index (BMI) Body weight Body temperature Oxygen saturation Oxygen saturation in Arterial blood by Pulse oximetry Heart rate Systolic And Diastolic Provider Name and Address Organization Details Last Updated DateTime 4 152.4 cm 30.2 kg/m2 74346.0 2 g 97.8 [degF] 98 % 98 % 105 /min 160/90 mm[Hg] CATHICARLINE PICHARDOY [facility] 4 10:29:29 Social History Question Answer Notes LastModified by Organizat ion Details LastModified Time Tobacco Smoking Status Current Every Day Smoker CATHICARLINE BEATTY lisset [facility] 04/05/2024 10:31:26 Do You Have An Advance Directive? No Information not available 04/05/2024 What Is Your Level Of Caffeine Consumption? Heavy Information not available 04/05/2024 What Type Of Diet Are You Following? REGULAR Information not available 04/05/2024 Who Is Your Employer? [employer] Information not available 04/05/2024 What Is Your Relationship Status? Single Information not available 04/05/2024 Do You Have Any Dietary Restrictions? No Information not available 04/05/2024 Sex: Unknown Functional Status Question Answer Note LastModified by Organizat ion Details LastModified Time Do you use any illicit or recreational drugs? No Information not available 04/05/2024 What is your level of alcohol consumption? None Information not available 04/05/2024 Are you currently employed? Yes Information not available 04/05/2024 Are you able to walk? YESWOREST Information not available 04/05/2024 Are you able to care for yourself independently? Yes Information not available 04/05/2024 Mental Status None recorded. Family History Nothing Reported. Medical History No medical history recorded. Gynecological HistoryNo gynecological history recorded. Obstetrics History GPAL:G 0 P 0 0 0 0 Past Encounters Encounter ID Performer Location Encounter Start Date Encounter Closed Date Diagnosis/Indication Diagnosis SNOMED-CT Code Diagnosis ICD10 Code Diagnosis Note [id number] KACI KEBEDE [facility] ([facility]) [address] [place] [address] 10/24/2023 14:30:35 10/24/2023 18:03:45 Pain of right wrist 0818180724 57627 M25.531 No fx noted on xray today. No signs of infection. Mullen wrist splint applied today.Appl y an ice pack for 10 minutes every 2 hours while awake. Ensure the ice pack is covered with a towel to keep the splint dry.Elevat e the hand to help with swelling and discomfort .May alternate tylenol/mo stacy for pain control.F/ u with PCP in 5-7 days if pain/sympt oms persist [id number] Cony Olvera MD [facility] ([facility]) [address] [place] [address] 04/05/2024 10:18:12 04/05/2024 10:48:17 Tenosynovitis of thumb 613508566 M65.849 Likely tenosynovi tis of the thumb. Discussed RICE and anti-infla mmatory medication s. Will start Mobic. Utilize thumb spica splint when at work and do exercises at home. These exercises were demonstrat ed to the patient. Health Concerns Section Related Observation LastModified by Organization Detai ls LastModified Time None Recorded Concern Status LastModified by Organization Details LastModified Time None Recorded Advance Directives Directive N: Payers Insurance Date Sequence Insurance Name Policy Number Policy Su Covered Member ID Su Member ID Guarantor Name 04/03/2024 [facility] (MEDICAID HMO) Robyn Asencio [id number] Robyn Asencio 04/02/2024 1 [facility] (MEDICAID HMO) Robyn Asencio [id number] Robyn Asencio OBGyn Episode No OBEpisode recorded.
[2025-02-21 12:09] VITALS: BP 177/113; PULSE 108; RESP 14; TEMP 36.5; O2SAT 99
[2025-02-21 12:18] VITALS: BP 166/115; PULSE 108; TEMP 36.7; O2SAT 100; BMI 29.2
--- NOTE | 2025-02-21 12:18 | ED_ITS ---
HPI - Abdominal Pain 2 General: Chief Complaint: Abdominal Pain Stated Complaint: abd pain Time Seen by Provider: 02/21/25 12:08 Source: patient Mode of arrival: ambulatory Limitations: no limitations History of Present Illness: 44-year-old female who presents to the E D with complaints of stabbing RUQ pain that radiates across her abdomen since 0700 this morning. Patient reports that the pain was initially intermittent and has now become constant and more intense. She denies any nausea, vomiting, fevers, chills, chest pain, or shortness of breath. She states she has not been able to eat or drink anything today because she was in so much pain. She has history of hysterectomy but no other abdominal surgeries. No other complaints at this time. MD elicited complaint: abdominal pain Pertinent past history: none Onset (ago): hour(s) (5) Pain Consistency: constant Location: RUQ Severity: severe Quality: stabbing Radiation: epigastric Exacerbating factors: nothing Relieving factors: nothing Associated Symptoms: Denies change in stool character, chills, dysuria, fever(s), nausea and vomiting Related Data Previous Rx's ?Medication ?Instructions ?Recorded estradiol 1 mg tablet 1 mg PO DAILY #30 tabs 09/04 bupropion HCl 150 mg 24 hr tablet, 150 mg PO QAM #30 t abs 11/25/24 extended release (Wellbutrin XL) sertraline 100 mg tablet (Zoloft) 100 mg PO DAILY #30 tabs 11/25/24 trazodone 50 mg tablet 100 mg (2 x 50 mg) PO .HS RI N 11/25/24 insomnia #60 tabs pantoprazole 40 mg tablet,delayed 40 mg PO DAILY 4 wee ks #28 tabs 02/21/25 release (Protonix) sucralfate 1 gram tablet (Carafate) 1 g PO TID 2 weeks #42 tabs 02/21/25 Allergies Allergy/AdvReac Type Severity Reaction Status Date / Time No Known Allergies Allergy Verified 02/21/25 12:21 Review of Systems 2 Const: Denies: fever(s), chills, body aches, fatigue or malaise Card: Denies: chest pain Resp: Denies: dyspnea GI: Reports: abdominal pain; Denies: nausea, vomiting or change in stool character : Denies: flank pain, difficulty voiding, dysuria, urinary frequency or urinary urgency Musc: Denies: neck pain, back pain, extremity pain, extremity swelling, joint pain, joint swelling or joint redness Skin/Breast: Denies: rash Neuro: Denies: headache(s), numbness in extremities, weakness in extremities, sensory changes or dizziness PFSH ED 2 PFSH: Medical History Psychiatric care Hydronephrosis Possible right mild hydronephrosis on CT scan in 2021. CT scan was done for LEFT abdominal pain of unclear etiology Follow-up for hydronephrosis with ultrasound confirmed NO HYDRONEPHROSIS. No further work-up recommended. No pertinent past medical history Surgical History H/O vaginal hysterectomy (~01/15/23) TVH, BSO; small bladder laceration repaired; performed by Ernst at [facility] for chronic pelvic pain Hx of tubal ligation Family History Mother Healthy adult Father Healthy adult Social History Smoking and tobacco/nicotine status: current every day tobacco/nicotine user Alcohol intake: current Alcohol intake frequency: 0-2 Drinks per Day Substance/Drug Use: never Adopted: No Lives independently: Yes Marital status: Single Current occupational status: employed Physical Exam 2 Const: COMMON NORMALS: average body habitus, patient oriented x3, no limitations, healthy appearing, alert and well nourished GENERAL APPEARANCE: in distress (appears uncomfortable holding RUQ) ORIENTATION/CONSCIOUSNESS: Y es awake HENMT: COMMON NORMALS: normocephalic and atraumatic HEAD & SCALP: normal to inspection, normocephalic and atraumatic Eye: COMMON NORMALS: no scleral icterus Resp: COMMON NORMALS: normal respiratory effort and clear to auscultation bilaterally AUSCULTATION: clear to auscultation bilaterally Cardio: COMMON NORMALS: regular rhythm RATE: tachycardic RHYTHM: regular rhythm GI: COMMON NORMALS: Normal to inspection, nondistended, normoactive bowel sounds present, Soft to palpation, No hepatosplenomegaly present and no masses INSPECTION: Yes normal to inspection AUSCULTATION: Yes normoactive bowel sounds PALPATION: Yes Soft to palpation, Yes Tenderness to palpation present (GI) (RUQ/epigastric) Details: RUQ (Positive Tapia sign), No Guarding due to palpation present (GI), No Rigid due to palpation and Yes No hepatosplenomegaly present : COMMON NORMALS: Yes no CVA tenderness BLADDER/KIDNEY EXAM: Yes no CVA tenderness Back/Pelvis: COMMON NORMALS: no CVA tenderness, thoracic and lumbar spine normal to inspection and no thoracic nor lumbar tenderness Extremity: COMMON NORMALS: capillary refill normal, no clubbing, cyanosis or edema, no calf tenderness and no pedal edema GENERAL: Yes normal exam except as noted Neuro: COMMON NORMALS: patient oriented x3, moves all extremities, no focal motor deficits and no sensory deficits noted SENSORIUM/ORIENTATION: Yes alert Skin: COMMON NORMALS: no rashes or lesions noted GENERAL SKIN EXAM: no rashes or lesions noted Course 2 Vital Signs: Vital signs: Vital Signs Temperature 98.0 F 02/21/25 12:18 Pulse Rate 99 02/21/25 13:49 Respiratory Rate 14 02/21/25 12:09 Blood Pressure 165/107 02/21/25 13:49 Pulse Oximetry 100 02/21/25 13:49 Oxygen Delivery Me thod Room Air 02/21/25 13:49 MDM - Abdominal Pain Medical Decision Making Patient here for right upper quadrant/epigastric abdominal pain starting this morning. Blood work overall is unremarkable. US of her gallbladder obtained and normal. CT imaging obtained to rule out other etiologies for her discomfort. CT scan showing findings compatible with gastroduodenitis. Will place her on a PPI/Carafate and have her follow-up with general surgery for evaluation for possible endoscopy in case symptoms do not improve with medication therapy. Return ED precautions discussed. Medical Records I reviewed the patient's medical records. Lab Data I reviewed the patient's lab results. 02/21/25 12:45 02/21/25 13:03 Labs/Radiology: Radiology Impressions Gallbladder Ultrasound 02/21/25 12:19 IMPRESSION: Normal right upper quadrant ultrasound. Abdomen/Pelvis CT 02/21/25 13:24 IMPRESSION: 1. Small esophageal hiatal hernia. 2. Gastric mucosal enhancement extending into the duodenum compatible with gastroduodenitis. 3. Bibasilar atelectasis. 4. Fatty liver. 5. No hydronephrosis in either kidney. 6. Sigmoid diverticulosis. No evidence of acute diverticulitis. 7. Prior hysterectomy 8. Normal appendix. 9. No other acute findings. Laboratory Results WBC 4.98 10^3/uL (3.29-11.43) 02/21/25 12:45 RBC 4.46 10^6/uL (3.85-5.65) 02/21/25 12:45 Hgb 13.60 g/dL (11.27-16.99) 02/21/25 12:45 Hct 41.1 % (36-47) 02/21/25 12:45 MCV 92.2 fl (85-98) 02/21/25 12:45 MCH 30.5 pg (27-33) 02/21/25 12:45 MCHC 33.1 g/dL (30-55) 02/21/25 12:45 RDW 13.2 % (12.1-15.1) 02/21/25 12:45 Plt Count 300 10^3/cmm (157-399) 02/21/25 12:45 MPV 9.6 fL (7.4-10.4) 02/21/25 12:45 Neut % (Auto) 68.3 % 02/21/25 12:45 Lymph % (Auto) 21.5 % 02/21/25 12:45 [place] % (Auto) 7.6 % 02/21/25 12:45 Eos % (Auto) 2.0 % 02/21/25 12:45 Baso % (Auto) 0.4 % 02/21/25 12:45 Neut # (Auto) 3.40 10^3/uL (1.8-7.7) 02/21/25 12:45 Lymph # (Auto) 1.1 10^3/uL (0.8-4.8) 02/21/25 12:45 [place] # (Auto) 0.4 10^3/uL (0.2-0.9) 02/21/25 12:45 Eos # (Auto) 0.1 10^3/uL (0.0-0.8) 02/21/25 12:45 Baso # (Auto) 0.0 10^3/uL (0.0-0.1) 02/21/25 12:45 Nucleated RBC % (auto) 0 % 02/21/25 12:45 Nucleated RBCs # 0.0 /100WBC 02/21/25 12:45 Sodium 136 mmol/L (136-145) 02/21/25 13:03 Potassium 3.4 mmol/L (3.5-5.1) L 02/21/25 13:03 Chloride 104 mmol/L (98-107) 02/21/25 13:03 Carbon Dioxide 20 mmol/L (22-29) L 02/21/25 13:03 Anion Gap 15.4 (5-19) 02/21/25 13:03 BUN 12 mg/dL (6-20) 02/21/25 13:03 Creatinine 0.7 mg/dL (0.5-0.9) 02/21/25 13:03 GFR Calculation 90.5 mL/min (90-130) 02/21/25 13:03 Glucose 93 mg/dL (65-115) 02/21/25 13:03 Calculated Osmolality 281 mOsm/kg (285-295) L 02/21/25 13:03 Calcium 8.4 mg/dL (8.5-10.5) L 02/21/25 13:03 Total Bilirubin 0.3 mg/dL (0.15-1.2) 02/21/25 13:03 AST 17 U/L (0-32) 02/21/25 13:03 ALT 20 U/L (0-33) 02/21/25 13:03 Alkaline Phosphatase 128 U/L (35-105) H 02/21/25 13:03 Total Protein 6.8 g/dL (6.6-8.7) 02/21/25 13:03 Albumin 3.7 g/dL (3.5-5.2) 02/21/25 13:03 Globulin 3.1 g/dL (1.3-4.6) 02/21/25 13:03 Lipase 32 U/L (13-60) 02/21/25 13:03 Amorphous Sediment Not Reportable 02/21/25 13:47 All radiology interpretation(s) finalized by discharge Discharge Plan Discharge Patient Disposition: Home Clinical Impression: Gastritis and duodenitis Condition: Stable Prescriptions: New sucralfate [Carafate] 1 gram tablet 1 g PO TID 14 Days Qty: 42 0RF pantoprazole [Protonix] 40 mg tablet,delayed release (DR/EC) 40 mg PO DAILY 28 Days Qty: 28 0RF No Action bupropion HCl [Wellbutrin XL] 150 mg tablet extended release 24 hr 150 mg PO QAM Qty: 30 2RF sertraline [Zoloft] 100 mg tablet 100 mg PO DAILY Qty: 30 2RF trazodone 50 mg tablet 100 mg PO .HS PRN (Reason: insomnia) Qty: 60 2RF estradiol 1 mg tablet 1 mg PO DAILY Qty: 30 3RF Discharge Orders: Discharge ED (Routine); Ordered 02/21/25 Ordered By: Dayna Marquez Referrals: Naif Olvera MD [Primary Care Provider, Family Practice] Patient Instructions: Gastritis (DC), Diet for Stomach Ulcers and Gastritis (ED), Duodenitis (ED), Patient Portal & Travis Instructions Activity Restrictions/Additional Instructions: As we discussed, your blood work here was unremarkable. Ultrasound of your gallbladder was normal. CT scan showing some inflammation to your stomach and first portion of your small intestine. We will place you on medications to help with this as well as discharged you with dietary changes you can start. We will have case management work on getting you set up with general surgery for evaluation for possible endoscopy in case symptoms do not improve. You may return to the emergency department at anytime for worsening pain, bloody vomit, fevers, generally feeling worse or unwell, or any other concerns you may have. Hope you begin to feel better soon. Print Language: Maltese Coding Level of Care Code ED Haircutter for Brenda Gan
--- NOTE | 2025-02-21 12:19 | US_ITS ---
WS: [id number] RIGHT UPPER QUADRANT ULTRASOUND HISTORY: RUQ pain COMPARISON: None available. Liver: 14.2 cm in length. Normal size liver and echogenicity. No bile duct dilatation or mass. Portal Vein: Normal hepatopetal flow with monophasic waveform. Gallbladder: Normally distended gallbladder with no stones or wall thickening. CBD: 0.2 cm Pancreas: Normal size and echogenicity. Right kidney: 10.9 cm in length. Normal size and echogenicity. No hydronephrosis or mass. Aorta and IVC: Unremarkable abdominal aorta and IVC. No ascites. US/US gall bladder [id number] IMPRESSION: Normal right upper quadrant ultrasound.
[2025-02-21] MEDS: ondansetron 2 mg/ML SDV 2 mL 4 MG IVP (12:41)
[2025-02-21 12:43] VITALS: BP 157/105; PULSE 105; O2SAT 100
[2025-02-21] MEDS: morphine 4 mg/mL SDV 1 mL IVP (12:45)
[2025-02-21 12:53] LABS: Hematocrit 41.1 % (36-47); Hemoglobin 13.60 g/dL (11.27-16.99); Mean Corpuscular HGB Conc 33.1 g/dL (30-55); Mean Corpuscular Hemoglobin 30.5 pg (27-33); Mean Corpuscular Volume 92.2 fl (85-98); Nucleated Red Blood Cells % 0 %; Platelet Count 300 10^3/cmm (157-399); Red Blood Count 4.46 10^6/uL (3.85-5.65); White Blood Count 4.98 10^3/uL (3.29-11.43)
--- NOTE | 2025-02-21 13:24 | CT_ITS ---
WS: [id number] CT ABDOMEN PELVIS TECHNIQUE: Contrast-enhanced CT of the abdomen and pelvis with coronal and sagittal reformatted images. CLINICAL INFORMATION: RUQ pain COMPARISON: 2021 DLP: 621.[address] scans at [facility] use at least one of these dose optimization techniques: automated exposure control; mA and/or kV adjustment per patient size (includes targeted exams where dose is matched to clinical indication); or iterative reconstruction. FINDINGS: Slight bibasilar atelectasis. Tiny nodule RIGHT middle lobe. Mild diffuse fatty infiltration of the liver. Normal gallbladder. Small esophageal hiatal hernia. Adrenal glands are normal. Normal renal parenchymal enhancement. No hydronephrosis. Bilateral parenchymal scarring. Normal portal vein and splenic vein. Normal pancreatic parenchymal enhancement. Celiac and SMA are patent. Mild aortic calcification. Mild submucosal enhancement in the hepatic flexure probably within normal limits. No evidence of high-grade small or large bowel obstruction. Diffuse gastric rugal fold thickening with enhancement. Enhancement sensitive the duodenum compatible with gastroduodenitis. Sigmoid diverticulosis. No evidence of acute diverticulitis. Normal caliber abdominal aorta. Appendix appears normal. Prior hysterectomy CT/CT abdomen pelvis w con* [id number] IMPRESSION: 1. Small esophageal hiatal hernia. 2. Gastric mucosal enhancement extending into the duodenum compatible with gas troduodenitis. 3. Bibasilar atelectasis. 4. Fatty liver. 5. No hydronephrosis in either kidney. 6. Sigmoid diverticulosis. No evidence of acute diverticulitis. 7. Prior hysterectomy 8. Normal appendix. 9. No other acute findings.
--- NOTE | 2025-02-21 13:24 | XRR_ITS ---
PROCEDURE INFORMATION: Exam: XR Chest Exam date and time: 02/21/2025 1:33 PM Age: 44 years old Clinical indication: Pain; Right-sided; Prior surgery; Surgery date: 6+ months; Surgery type: Hyst; Additional info: Ruq pain TECHNIQUE: Imaging protocol: Radiologic exam of the chest. Views: 1 view. COMPARISON: CT abdomen pelvis w con* [id number] 02/21/2025 1:31 PM FINDINGS: Lungs: Unremarkable. No infiltrate or consolidation. Pleural spaces: Unremarkable. No pleural effusion. No pneumothorax. Heart/Mediastinum: Unremarkable. No cardiomegaly. Bones/joints: Visualized osseous structures show no acute abnormality. XR/XR chest 1V portable [id number] IMPRESSION: Single-view chest is without acute cardiopulmonary abnormality.
[2025-02-21 13:34] LABS: Alanine Aminotransferase 20 U/L (0-33); Albumin Level 3.7 g/dL (3.5-5.2); Alkaline Phosphatase 128 U/L (35-105); Anion Gap 15.4 (5-19); Aspartate Amino Transferase 17 U/L (0-32); Blood Urea Nitrogen 12 mg/dL (6-20); Calcium 8.4 mg/dL (8.5-10.5); Carbon Dioxide 20 mmol/L (22-29); Chloride 104 mmol/L (98-107); Creatinine Clr Calc Pharmacy 87.3439; Globulin 3.1 g/dL (1.3-4.6); Glucose 93 mg/dL (65-115); Lipase 32 U/L (13-60); Osmolality Calculated 281 mOsm/kg (285-295); Potassium 3.4 mmol/L (3.5-5.1); Sodium 136 mmol/L (136-145); Total Protein 6.8 g/dL (6.6-8.7)
[2025-02-21] MEDS: iohexol 350 mg/mL 500 mL Btl (per mL) IV (13:36)
[2025-02-21 13:49] VITALS: BP 165/107; PULSE 99; O2SAT 100
[2025-02-21 13:59] LABS: Glucose Urine UA Negative (Normal); Nitrate Urine Positive (Negative)
[2025-02-21 14:01] LABS: Add Urine Microscopic? YES
[2025-02-21] MEDS: lidocaine 2% viscous 15 ML, aluminum-mag hydrox-simethicon 30 ML, sucralfate oral liq 1 GM PO (14:04)
[2025-02-21 14:09] LABS: Specific Gravity, Urine 1.052 (1.005-1.030)
[2025-02-21 14:16] VITALS: BP 152/101; PULSE 98; O2SAT 99
--- NOTE | 2025-02-23 14:33 | PC.NURSE ---
General Surgery referral sent,.
== END 2025-02-21 14:16 | disposition home or self-care (01) ==
PROVIDERS: Emergency Provider Physician Assistant; PCP Family Medicine
DX: K29.70 Gastritis, unspecified, without bleeding (principal); K29.80 Duodenitis without bleeding; Z72.0 Tobacco use
CPT/HCPCS: 36415; 71045; 74177; 76705; 80053; 81001; 83690; 85025; 87077; 87086; 87186; 96374; 96375; 99285; J2270; J2405; J9999

== ENCOUNTER 2025-03-08 06:40 | Day surgery (SDC) | payer MEDICAID, SELFPAY ==
[2025-03-08 06:58] VITALS: BP 135/100; PULSE 101; RESP 18; TEMP 36.2; O2SAT 97; BMI 31.8
--- NOTE | 2025-03-08 07:34 | ANES.PREANE2 ---
Pre-Anesthetic Assessment Height/Weight: Height 1.52 m Weight 73.936 kg Temp Pulse Resp BP Pulse Ox O2 Del Method 97.1 F L 101 H 18 135/100 97 Room Air 03/08/25 06:58 03/08/25 06:58 03/08/25 06:58 03/08/25 06:58 03/08/25 06:58 03/08/25 06:58 Preop Diagnosis: Gastritis Operation Date: 03/08/25 08:00 Proposed Procedures p EGD EGD with Biopsy [id number], K29.70(Not Applicable) - Carrillo Dong MD Familial anesthetic complications: none Was Beta Taqueria taken within 24 hours: N/A Was Clonidine taken within 24 hours: N/A Last intake: Intake Last Liquid Date 03/07/25 Last Liquid Time 22:00 Last Solid Date 03/07/25 Last Solid Time 17:00 Social Alcohol and Tobacco Exam alert, oriented x 3, clear to auscultation bilaterally and regular rate & rhythm Airway Submandibular: within normal limits Cervical ROM: within normal limits Mallampati: Class II Comments: Comments: edentulous Pulmonary None reported CV/HEM None reported None reported Hepatic None reported GI Gastroesophageal Reflux Disease Metabolic None reported Musc/skel None reported Neuropsych Anxiety and Depression Anesthetic Plan ASA status: 2 Anesthesia: MAC Medications/Allergies Home Medications ?Medication ?Instructions ?Recorded ?Confirmed ?Last Taken ?Type estradiol 1 mg tablet 1 mg PO DAILY #30 tabs 09/04/23 03/08/25 03/07/25 Rx pantoprazole 40 mg tablet,delayed 40 mg PO BID 6 weeks #84 tabs 03/03/25 03/08/25 03/07/25 Rx release (Protonix) trazodone 50 mg tablet 50 mg PO .HS PRN insomnia 03/03/25 03/08/25 03/07/25 History bupropion HCl 300 mg 24 hr tablet, 300 mg PO QAM #30 tabs 03/04/25 03/08/25 03/07/25 Rx extended release (Wellbutrin XL) sertraline 100 mg tablet (Zoloft) 100 mg PO DAILY #30 tabs 03/04/25 03/08/25 03/07/25 Rx Allergies Allergy/AdvReac Type Severity Reaction Status Date / Time No Known Allergies Allergy Verified 03/08/25 06:55 Current Medications Generic Name Dose Route Start Last Admin Trade Name Freq PRN Reason Stop Dose Admin Sodium Chloride 1,000 mls @ 15 mls/hr 03/08/25 06:52 03/08/25 07:07 Sodium Chloride 0.9% IV 03/09/25 06:51 15 mls/hr .Q24H PRN Administration COLONOSCOPY FLUIDS PFSH Anesthesia Medical History (Updated 03/03/25 @ 11:20 by Carrillo Dong MD) Psychiatric care Hydronephrosis Possible right mild hydronephrosis on CT scan in 2021. CT scan was done for LEFT abdominal pain of unclear etiology Follow-up for hydronephrosis with ultrasound confirmed NO HYDRONEPHROSIS. No further work-up recommended. No pertinent past medical history Surgical History H/O vaginal hysterectomy (~01/15/23) TVH, BSO; small bladder laceration repaired; performed by Ernst at [facility] for chronic pelvic pain Hx of tubal ligation Family History Mother Healthy adult Father Healthy adult Social History Smoking and tobacco/nicotine status: former use of tobacco/nicotine Alcohol intake: current Alcohol intake frequency: 0-2 Drinks per Day Substance/Drug Use: never Adopted: No Lives independently: Yes Marital status: Single Current occupational status: employed
--- NOTE | 2025-03-08 08:19 | W.PM.OPSUD ---
Surgery/Procedure H&P Update DATE OF PROCEDURE: March 08, 2025 DATE H&P PERFORMED: 03/03/25 H&P UPDATE INFORMATION: I have reviewed H&P completed within last 30 days, I have examined patient prior to procedure and No changes to prior documentation PREOP DIAGNOSIS: Gastritis PLANNED PROCEDURE: Operation Date: 03/08/25 08:00 Proposed Procedures p EGD EGD with Biopsy [id number], K29.70(Not Applicable) - Carrillo Dong MD
[2025-03-08 08:45] VITALS: BP 135/104; PULSE 109; RESP 18; TEMP 36.4; O2SAT 97
[2025-03-08 08:57] VITALS: BP 133/103; PULSE 100; RESP 18; O2SAT 98
[2025-03-08 09:07] VITALS: BP 142/110; PULSE 100; RESP 18; O2SAT 99
--- NOTE | 2025-03-08 09:20 | ANE.PACU2 ---
Inpatient post-anesthesia follow up: Airway intact: Yes Vital signs: Temperature 97.6 F Pulse Rate 100 Respiratory Rate 18 Blood Pressure 142/110 Pulse Oximetry 99 Oxygen Delivery Me thod Room Air Oxygen Flow Rate 3 Fraction of Inspir ed Oxygen Hydration adequate: Yes Nausea and vomiting: No Pain level: 1 Mental status: Baseline
== END 2025-03-08 09:20 | disposition home or self-care (01) ==
PROVIDERS: PCP Family Medicine; Visit Provider Student in an Organized Health Care Education/Training Program
PROC: 0DJ08ZZ Inspection of Upper Intestinal Tract, Via Natural or Artificial Opening Endoscopic (ICD-10-PCS; principal; 2025-03-08 08:00)
DX: K29.50 Unspecified chronic gastritis without bleeding (principal); B96.81 Helicobacter pylori [H. pylori] as the cause of diseases classified elsewhere; K31.A0 Gastric intestinal metaplasia, unspecified; K21.9 Gastro-esophageal reflux disease without esophagitis; F41.8 Other specified anxiety disorders; Z87.891 Personal history of nicotine dependence
CPT/HCPCS: 43239; 88305; 88342; J2704; J7030